=== PATIENT | male | born 1980 | race American Indian/Alaskan Native ===

== ENCOUNTER 2020-04-30 15:39 | Emergency (ER) | payer MEDICAID ==
[2020-04-30 16:29] VITALS: BP 146/91
[2020-04-30] MEDS ORDERED: TETRACAINE 0.5% OPHTH SOLN 4ML OD ONE (16:33)
[2020-04-30] MEDS ORDERED: FLUORESCEIN 1 MG STRIP OP ONE (16:33)
--- NOTE | 2020-04-30 16:56 | Emergency Department Report ---
ED Eye Problem HPI - General Chief complaint: Eye Problems Stated complaint: RT EYE SWOLLEN Time Seen by Provider: 04/30/20 16:30 Source: patient Mode of arrival: Ambulatory Limitations: No Limitations - History of Present Illness Initial comments: pt is a 39 yo male who presents to the ED with c/o a bug flying into the right eye that occurred earlier today. he states he was able to quickly get the bug out of the eye. he denies the bug still being in the eye. he denies anything else in the eye. he states that his eye began to swell and he began to have eyelid swelling. he denies any other swelling of the face, rash, difficulty breathing or swallowing. he denies any vision changes. he denies any known allergies. he denies any pmhx or allergies to meds. - Related Data Previous Rx's Medication Instructions Recorded Last Taken Type Erythromycin [Erythromycin Ophth 1 applic OD QID 7 Days #1 tube 04/30/20 Unknown Rx Oint] Ketotifen Fumarate 1 drop OD BID #1 bottle 04/30/20 Unknown Rx Loratadine 10 mg PO DAILY #10 tablet 04/30/20 Unknown Rx diphenhydrAMINE [Benadryl CAP] 25 mg PO Q8HR PRN #14 capsule 04/30/20 Unknown Rx Allergies Allergy/AdvReac Type Severity Reaction Status Date / Time No Known Allergies Allergy Unverified 04/30/20 16:26 ED Review of Systems ROS: Stated complaint: RT EYE SWOLLEN Other details as noted in HPI Comment: All other systems reviewed and negative ED Past Medical Hx - Past Medical History Previous Medical History?: No - Surgical History Past Surgical History?: No - Social History Smoking Status: Never Smoker Substance Use Type: None - Medications Home Medications: Home Medications Medication Instructions Recorded Confirmed Last Taken Type Erythromycin [Erythromycin Ophth 1 applic OD QID 7 Days #1 tube 04/30/20 Unknown Rx Oint] Ketotifen Fumarate 1 drop OD BID #1 bottle 04/30/20 Unknown Rx Loratadine 10 mg PO DAILY #10 tablet 04/30/20 Unknown Rx diphenhydrAMINE [Benadryl CAP] 25 mg PO Q8HR PRN #14 capsule 04/30/20 Unknown Rx ED Physical Exam - General Limitations: No Limitations General appearance: alert, in no apparent distress - Head Head exam: Present: atraumatic, normocephalic - Eye Eye exam: Present: PERRL, EOMI, other (there is mild edema present to the right lateral conjunctiva with mild conjunctival injection, there is mild edema to the right lower eyelid, person lamp and fluoroscein stain: there are two areas of uptake one on the iris and one on the right lateral conjunctiva, no foreign body, no obvious ulcerati) Pupils: Present: other (no pain with EOMI) - ENT ENT exam: Present: mucous membranes moist - Respiratory Respiratory exam: Absent: respiratory distress, accessory muscle use - Neurological Exam Neurological exam: Present: alert, oriented X3 - Psychiatric Psychiatric exam: Present: normal affect, normal mood - Skin Skin exam: Present: warm, dry, intact ED Course Vital Signs 04/30/20 16:27 Temperature 98.3 F Pulse Rate 68 Respiratory 18 Rate Blood Pressure 146/91 O2 Sat by Pulse 98 Oximetry ED Medical Decision Making - Medical Decision Making pt is a 39 yo male who presents to the ED with c/o a bug flying into the right eye that occurred earlier today. he states he was able to quickly get the bug out of the eye. he denies the bug still being in the eye. he denies anything else in the eye. he states that his eye began to swell and he began to have eyelid swelling. he denies any other swelling of the face, rash, difficulty breathing or swallowing. he denies any vision changes. he denies any known allergies. he denies any pmhx or allergies to meds. vss. on exam:there is mild edema present to the right lateral conjunctiva with mild conjunctival injection, there is mild edema to the right lower eyelid, person lamp and fluoroscein stain: there are two areas of uptake one on the iris and one on the right lateral conjunctiva, no foreign body, no obvious ulceration, no pain with EOMI. examination appears consistent with corneal abrasion and likely an allergic reaction from the bug causing allergic conjunctivitis. no signs of foreign body, corneal laceration, preseptal or orbital cellulitis. pt given prescription for benadryl, erythromycin opthalmic ointment, zatidor, and loratadine. advised pt please use medication as prescribed. please separate eye medication administration by one hour. wash your hands frequently and before or after placing medication to eye. Benadryl may cause drowsiness, do not drive or operate heavy machinery while taking. follow up with an home health physical therapist. return to the emergency room for any new or worsening symptoms. Critical care attestation.: If time is entered above; I have spent that time in minutes in the direct care of this critically ill patient, excluding procedure time. ED Disposition Clinical Impression: Allergic conjunctivitis Qualifiers: Laterality: right Qualified Code(s): H10.11 - Acute atopic conjunctivitis, right eye Corneal abrasion Qualifiers: Encounter type: initial encounter Laterality: right Qualified Code(s): S05.01XA - Injury of conjunctiva and corneal abrasion without foreign body, right eye, initial encounter Disposition: - TO HOME OR SELFCARE Is pt being admited?: No Does the pt Need Aspirin: No Condition: Stable Instructions: Allergic Conjunctivitis, Adult, [id number], Corneal Abrasion Additional Instructions: please use medication as prescribed. please separate eye medication administration by one hour. wash your hands frequently and before or after placing medication to eye. Benadryl may cause drowsiness, do not drive or operate heavy machinery while taking. follow up with an home health physical therapist. return to the emergency room for any new or worsening symptoms. Prescriptions: diphenhydrAMINE [Benadryl CAP] 25 mg PO Q8HR PRN #14 capsule PRN Reason: swelling/redness Erythromycin [Erythromycin Ophth Oint] 1 applic OD QID 7 Days #1 tube Ketotifen Fumarate 1 drop OD BID #1 bottle Loratadine 10 mg PO DAILY #10 tablet Referrals: ABHAY CASTRO MD [Staff Physician] - 2-3 Days [facility] [Provider Group] - 2-3 Days Time of Disposition: 16:56 Print Language: SERBIAN
== END 2020-04-30 17:36 | disposition home or self-care (01) ==
LOC: ED 15:39
DX: S05.01XA Injury of conjunctiva and corneal abrasion without foreign body, right eye, initial encounter (principal); H10.11 Acute atopic conjunctivitis, right eye; Z79.2 Long term (current) use of antibiotics; Z79.899 Other long term (current) drug therapy; X58.XXXA Exposure to other specified factors, initial encounter; Y93.89 Activity, other specified; Y92.89 Other specified places as the place of occurrence of the external cause; Y99.8 Other external cause status
CPT/HCPCS: 99282; 99283